=== PATIENT | male | born 1965 | race Caucasian/White ===

== ENCOUNTER 2017-08-21 01:15 | Emergency (ER) | payer OTHER ==
[2017-08-21] MEDS ORDERED: Lidocaine 2% Viscous Solution 15 ML Cup PO ONE (01:41)
[2017-08-21] MEDS ORDERED: Benzocaine 20% Topical Spray UD MUCMEM ONE (01:41)
--- NOTE | 2017-08-21 01:46 | EDM.PDOC ---
ED HPI GENERAL MEDICAL PROBLEM - General Chief Complaint: General Stated Complaint: TOOTH PAIN Time Seen by Provider: 08/21/17 01:33 - History of Present Illness INITIAL COMMENTS - FREE TEXT/NARRATIVE: HISTORY AND PHYSICAL: History of present illness: The patient is a 51-year-old male who presents with complaints of left upper maxillary pain/sinus pain that has been going on for last 24 hours. The patient has a known history of seasonal allergies and sinus problems and is concerned that it could be a sinusitis. He saying that he blows his nose and some yellow- green fluid is coming out. He has had no fever or sore throat ear pain chest pain or shortness of breath. He's been eating and drinking normally. He says he thought it might of been a tooth problem or the sinus problem and would like evaluation but he has no specific pain at any of the teeth on that upper left side. Review of systems: As per history of present illness and below otherwise all systems reviewed and negative. Past medical history: As per history of present illness and as reviewed below otherwise noncontributory. Surgical history: As per history of present illness and as reviewed below otherwise noncontributory. Social history: No reported history of drug or alcohol abuse. Family history: As per history of present illness and as reviewed below otherwise noncontributory. Physical exam: Gen.: Well-developed well-nourished man who is nontoxic and vital signs of been reviewed by me. HEENT: Atraumatic, normocephalic, pupils reactive, negative for conjunctival pallor or scleral icterus, mucous membranes moist, throat clear, neck supple, nontender, trachea midline. TM on the left is slightly dulled but not red and the turbinates are boggy bilaterally but left is much greater than right. There is some mild maxillary sinus tenderness. There is no 1 area of tooth decay seen on the left upper margin and there is no gum swelling or soft tissue tenderness. There is visible erosion of gums seen throughout the mouth and on that left upper side as well. No visible facial swelling on the left side of his face and bite is normal Lungs: Clear to auscultation, breath sounds equal bilaterally, chest nontender. Heart: S1S2, regular rate and rhythm no overt murmurs. Abdomen: Soft, nondistended, nontender. NABS Pelvis: Deferred Genitourinary: Deferred. Rectal: Deferred. Extremities: Atraumatic, negative for cords or calf pain. Neurovascular unremarkable. Neuro: Awake, alert, oriented. Cranial nerves II through XII unremarkable. Cerebellum unremarkable. Motor and sensory unremarkable throughout. Exam nonfocal. Diagnostics: [] Therapeutics: Dental balls I told the patient that he does need to follow-up with a dentist and get a dental x-ray to rule out the teeth on that side as a potential problem as he does have some gum erosion there. In light of my clinical findings that we treat him more as a sinusitis but I gave him the dental balls to use as needed. I will give him Augmentin B Insty Meds and recommended regular antihistamine use [id number] as well as Flonase Impression: Left sinusitis Definitive disposition and diagnosis as appropriate pending reevaluation and review of above. Left Face Pain Score (Numeric/FACES): 8 - Related Data Allergies Allergy/AdvReac Type Severity Reaction Status Date / Time No Known Allergies Allergy Verified 08/21/17 01:29 Home Meds: Home Meds . [No Known Home Meds] 08/21/17 [History] Past Medical History - Past Health History Medical/Surgical History: Denies Medical/Surgical History Musculoskeletal History: Reports: Amputation - Infectious Disease History Other Infectious Disease History: hay fever - Past Surgical History Musculoskeletal Surgical History: Reports: Arthroscopic Knee, Shoulder Surgery Social & Family History - Family History Family Medical History: Noncontributory - Tobacco Use Smoking Status *Q: Never Smoker Second Hand Smoke Exposure: No - Caffeine Use Caffeine Use: Reports: Soda - Recreational Drug Use Recreational Drug Use: No ED ROS GENERAL - Review of Systems Review Of Systems: ROS reveals no pertinent complaints other than HPI. ED EXAM, GENERAL - Physical Exam Exam: See Below (See dictation) Course - Vital Signs Last Recorded V/S: Last Vital Signs Temp 36.6 C 08/21/17 01:26 Pulse 95 08/21/17 01:26 Resp 19 08/21/17 01:26 BP 149/92 H 08/21/17 01:26 Pulse Ox 98 08/21/17 01:26 - Orders/Labs/Meds Orders: Active Orders 24 hr Category Date Time Status Benzocaine [Hurricaine One 20%] Med 08/21/17 01:41 Once 2 each MUCMEM ONETIME ONE Lidocaine 2% [Xylocaine 2% Viscous] Med 08/21/17 01:41 Once 15 ml PO ONETIME ONE Departure - Departure Time of Disposition: 01:45 Disposition: Home, Self-Care 01 Condition: Good Clinical Impression: Sinusitis Qualifiers: Sinusitis location: maxillary Chronicity: acute Recurrence: not specified as recurrent Qualified Code(s): J01.00 - Acute maxillary sinusitis, unspecified - Discharge Information Referrals: PCP,None [Primary Care Provider] - Additional Instructions: The following information is given to patients seen in the emergency department who are being discharged to home. This information is to outline your options for follow-up care. We provide all patients seen in our emergency department with a follow-up referral. The need for follow-up, as well as the timing and circumstances, are variable depending upon the specifics of your emergency department visit. If you don't have a primary care physician on staff, we will provide you with a referral. We always advise you to contact your personal physician following an emergency department visit to inform them of the circumstance of the visit and for follow-up with them and/or the need for any referrals to a consulting specialist. The emergency department will also refer you to a specialist when appropriate. This referral assures that you have the opportunity for followup care with a specialist. All of these measure are taken in an effort to provide you with optimal care, which includes your followup. Under all circumstances we always encourage you to contact your private physician who remains a resource for coordinating your care. When calling for followup care, please make the office aware that this follow-up is from your recent emergency room visit. If for any reason you are refused follow-up, please contact the [facility] emergency department at and ask to speak to the emergency department charge nurse. [facility] Primary care- Internal Medicine and Family [facility] [address] Please contact one of our local dentist to have the teeth on that left side evaluated for potential source of facial pain. He take antibiotics, Augmentin, as prescribed to be Insty Meds and also use [id number] antihistamines on a more regular basis such as Claritin and Arlet or Benadryl. Please also add Flonase to her regimen for the next 10 days. Push hydration. Please also contact one of our primary care physician's the clinic for reevaluation and further care as needed over the next few days. Return to ER as needed and as discussed - My Orders Last 24 Hours: My Active Orders 08/21/17 01:41 Benzocaine [Hurricaine One 20%] 2 each MUCMEM ONETIME ONE Lidocaine 2% [Xylocaine 2% Viscous] 15 ml PO ONETIME ONE - Assessment/Plan Last 24 Hours: My Active Orders 08/21/17 01:41 Benzocaine [Hurricaine One 20%] 2 each MUCMEM ONETIME ONE Lidocaine 2% [Xylocaine 2% Viscous] 15 ml PO ONETIME ONE
== END 2017-08-21 02:06 | disposition home or self-care (01) ==
LOC: MW.ED 01:15
DX: J01.00 Acute maxillary sinusitis, unspecified (principal)
CPT/HCPCS: 99283; A9270; 99284